=== PATIENT | male | born 1980 | race Caucasian/White ===

== ENCOUNTER 2017-11-19 11:32 | Inpatient (IN) | payer MEDICAID, OTHER ==
[2017-11-19 12:18] LABS: ADD MAN DIFF? NO
[2017-11-19 12:21] LABS: BASOPHILS % 0.3 % (0.0-2.0); EOSINOPHILS # 0.1 10^3/ul (0.0-0.5); EOSINOPHILS % 1.5 % (0.0-7.0); HEMATOCRIT 44.2 % (42.0-52.0); HEMOGLOBIN 15.5 g/dl (14.0-18.0); LYMPHOCYTES # 1.6 10^3/ul (0.8-2.9); LYMPHOCYTES % 24.1 % (15.0-51.0); MEAN CORPUSCULAR HEMOGLOBIN 28.2 pg (29.0-33.0); MEAN CORPUSCULAR HGB CONC 35.1 g/dl (32.0-37.0); MEAN CORPUSCULAR VOLUME 80.4 fl (82.0-101.0); MEAN PLATELET VOLUME 9.1 fl (7.4-10.4); MONOCYTE # 0.6 10^3/ul (0.3-0.9); MONOCYTES % 8.6 % (0.0-11.0); NEUTROPHIL # 4.3 10^3/ul (1.6-7.5); NEUTROPHILS % 65.3 % (39.0-77.0); PLATELET COUNT 284 10^3/UL (140-415); RED CELL DISTRIBUTION WIDTH 11.8 % (11.5-14.5)
[2017-11-19 12:21] LABS: WHITE BLOOD COUNT 6.5 10^3/ul (4.8-10.8)
[2017-11-19 12:43] LABS: ANION GAP 15 (8-16); BLOOD UREA NITROGEN 14 mg/dl (7-20); CALCIUM 10.1 mg/dl (8.4-10.2); CARBON DIOXIDE 26 mmol/L (21-31); CHLORIDE 105 mmol/L (97-110); CREATININE 0.79 mg/dl (0.61-1.24); GLUCOSE 107 mg/dl (70-220); POTASSIUM 3.6 mmol/L (3.5-5.1); SODIUM 142 mmol/L (135-144)
[2017-11-19] MEDS: FENTAnyl 50 MCG/ML VIAL IV (12:55)
[2017-11-19 12:56] LABS: INR 1.06; PROTIME 13.9 Sec (11.9-14.9); PT RATIO 1.1
[2017-11-19] MEDS ORDERED: MAGNESIUM HYDROXIDE 30ML CUP PO (13:30)
[2017-11-19] MEDS ORDERED: ACETAMINOPHEN 325 MG TAB PO ×2 (13:30)
[2017-11-19] MEDS ORDERED: NACL 0.9% 3 ML SYG IV (13:30)
[2017-11-19] MEDS ORDERED: LORAZEPAM 2 MG INJ IV (13:30)
[2017-11-19] MEDS ORDERED: DOCUSATE SODIUM 100 MG CAP PO (13:30)
[2017-11-19] MEDS ORDERED: BISACODYL (EC) 5 MG TAB PO (13:30)
[2017-11-19] MEDS ORDERED: ZOLPIDEM 5 MG TAB PO (13:30)
[2017-11-19] MEDS ORDERED: ONDANSETRON 4 MG INJ IV ×2 (13:30)
[2017-11-19] MEDS: HYDROCODONE/APAP (5/325) TAB PO ×2 (15:43→20:49)
[2017-11-19] MEDS: DEXTROSE 5%-0.45% NACL 1,000 ML IV ×2 (15:45→23:01)
[2017-11-19] MEDS: HEPARIN 5,000 UNIT/0.5 ML VIAL SC ×2 (15:45→21:41)
[2017-11-19] MEDS: morphine 2 MG INJ IV (23:03)
[2017-11-20] MEDS: DEXTROSE 5%-0.45% NACL 1,000 ML IV (03:16)
[2017-11-20] MEDS: morphine 2 MG INJ IV ×3 (03:16→12:34)
[2017-11-20 06:00] LABS: ADD MAN DIFF? NO
[2017-11-20] MEDS: HEPARIN 5,000 UNIT/0.5 ML VIAL SC ×3 (06:01→22:29)
[2017-11-20 06:25] LABS: BASOPHILS % 0.3 % (0.0-2.0); EOSINOPHILS # 0.1 10^3/ul (0.0-0.5); EOSINOPHILS % 2.2 % (0.0-7.0); HEMATOCRIT 42.1 % (42.0-52.0); HEMOGLOBIN 14.3 g/dl (14.0-18.0); LYMPHOCYTES # 1.5 10^3/ul (0.8-2.9); LYMPHOCYTES % 24.6 % (15.0-51.0); MEAN CORPUSCULAR VOLUME 82.5 fl (82.0-101.0); MEAN PLATELET VOLUME 9.4 fl (7.4-10.4); MONOCYTE # 0.6 10^3/ul (0.3-0.9); MONOCYTES % 9.6 % (0.0-11.0); NEUTROPHIL # 3.8 10^3/ul (1.6-7.5); NEUTROPHILS % 63.1 % (39.0-77.0); PLATELET COUNT 264 10^3/UL (140-415); RED CELL DISTRIBUTION WIDTH 12.3 % (11.5-14.5)
[2017-11-20 06:25] LABS: WHITE BLOOD COUNT 5.9 10^3/ul (4.8-10.8)
[2017-11-20 07:10] LABS: ALANINE AMINOTRANSFERASE 46 IU/L (13-69); ALBUMIN 3.9 g/dl (3.3-4.9); ALBUMIN/GLOBULIN RATIO 1.34; ALKALINE PHOSPHATASE 78 IU/L (42-121); ANION GAP 13 (8-16); ASPARTATE AMINO TRANSFERASE 27 IU/L (15-46); BILIRUBIN,INDIRECT 0.3 mg/dl (0-1.1); BILIRUBIN,TOTAL 0.3 mg/dl (0.2-1.3); BLOOD UREA NITROGEN 10 mg/dl (7-20); CALCIUM 9.1 mg/dl (8.4-10.2); CARBON DIOXIDE 30 mmol/L (21-31); CHLORIDE 105 mmol/L (97-110); CREATININE 0.72 mg/dl (0.61-1.24); GLUCOSE 123 mg/dl (70-220); MAGNESIUM 1.9 mg/dl (1.7-2.5); POTASSIUM 4.1 mmol/L (3.5-5.1); SODIUM 144 mmol/L (135-144); TOTAL PROTEIN 6.8 g/dl (6.1-8.1)
[2017-11-20] MEDS: morphine LIQ (10 MG/5 ML) CUP PO (18:39)
[2017-11-21] MEDS: morphine LIQ (10 MG/5 ML) CUP PO ×3 (02:35→23:19)
[2017-11-21 05:19] LABS: ADD MAN DIFF? NO
[2017-11-21 05:21] LABS: BASOPHILS % 0.5 % (0.0-2.0); EOSINOPHILS # 0.2 10^3/ul (0.0-0.5); EOSINOPHILS % 4.2 % (0.0-7.0); HEMATOCRIT 44.1 % (42.0-52.0); LYMPHOCYTES # 1.7 10^3/ul (0.8-2.9); LYMPHOCYTES % 31.3 % (15.0-51.0); MEAN CORPUSCULAR HEMOGLOBIN 28.2 pg (29.0-33.0); MEAN CORPUSCULAR VOLUME 82.9 fl (82.0-101.0); MEAN PLATELET VOLUME 8.9 fl (7.4-10.4); MONOCYTE # 0.6 10^3/ul (0.3-0.9); MONOCYTES % 10.4 % (0.0-11.0); NEUTROPHIL # 2.9 10^3/ul (1.6-7.5); NEUTROPHILS % 53.4 % (39.0-77.0); PLATELET COUNT 257 10^3/UL (140-415); RED BLOOD COUNT 5.32 10^6/ul (4.70-6.10); RED CELL DISTRIBUTION WIDTH 12.2 % (11.5-14.5)
[2017-11-21 05:21] LABS: WHITE BLOOD COUNT 5.5 10^3/ul (4.8-10.8)
[2017-11-21 05:42] LABS: ALANINE AMINOTRANSFERASE 52 IU/L (13-69); ALBUMIN 4.1 g/dl (3.3-4.9); ALBUMIN/GLOBULIN RATIO 1.36; ALKALINE PHOSPHATASE 89 IU/L (42-121); ANION GAP 15 (8-16); ASPARTATE AMINO TRANSFERASE 27 IU/L (15-46); BILIRUBIN,INDIRECT 0.3 mg/dl (0-1.1); BILIRUBIN,TOTAL 0.3 mg/dl (0.2-1.3); BLOOD UREA NITROGEN 13 mg/dl (7-20); CALCIUM 9.3 mg/dl (8.4-10.2); CARBON DIOXIDE 31 mmol/L (21-31); CHLORIDE 103 mmol/L (97-110); CREATININE 0.71 mg/dl (0.61-1.24); GLUCOSE 107 mg/dl (70-220); POTASSIUM 4.8 mmol/L (3.5-5.1); SODIUM 144 mmol/L (135-144); TOTAL PROTEIN 7.1 g/dl (6.1-8.1)
[2017-11-21 05:43] LABS: MAGNESIUM 2.1 mg/dl (1.7-2.5)
[2017-11-21 05:43] LABS: PHOSPHORUS 4.4 mg/dl (2.5-4.9)
[2017-11-21] MEDS: HEPARIN 5,000 UNIT/0.5 ML VIAL SC ×3 (06:09→21:57)
[2017-11-21] MEDS: HYDROCODONE/APAP (5/325) TAB PO ×2 (09:41→20:15)
[2017-11-21] MEDS ORDERED: HYDROmorphONE 1 MG/5 ML IV SYRINGE IV (12:57)
[2017-11-21] MEDS: HYDROmorphONE 0.5 MG/0.5 ML SYG IV (13:02)
[2017-11-22] MEDS: morphine LIQ (10 MG/5 ML) CUP PO ×2 (05:33→12:05)
[2017-11-22] MEDS: HEPARIN 5,000 UNIT/0.5 ML VIAL SC ×2 (05:39→13:54)
== END 2017-11-22 16:15 | disposition home or self-care (01) | DRG 563 ==
LOC: E/R 11:32 → PP2 13:03
PROC: 0QSJXZZ Reposition Right Fibula, External Approach (ICD-10-PCS; principal; 2017-11-19)
PROC: 0QSGXZZ Reposition Right Tibia, External Approach (ICD-10-PCS; 2017-11-19)
DX: S82.251A Displaced comminuted fracture of shaft of right tibia, initial encounter for closed fracture (principal); S82.451A Displaced comminuted fracture of shaft of right fibula, initial encounter for closed fracture; I10 Essential (primary) hypertension; W22.09XA Striking against other stationary object, initial encounter; Y93.66 Activity, soccer; Z87.81 Personal history of (healed) traumatic fracture
CPT/HCPCS: 71045; 73590; 73610-RT; 80048; 80053; 83735; 84100; 85025; 85610; 86850; 86900; 86901; 93005; 96372; 99285-25